=== PATIENT | male | born 1990 | race Caucasian/White ===

== ENCOUNTER 2017-11-07 10:04 | Inpatient (IN) | payer OTHER ==
[~2017-11-07 10:04] MED LIST: ROCURONIUM 50 MG INJ; VECURONIUM 10 MG VIAL
[2017-11-07] MEDS ORDERED: CIPROFLOXACIN 400MG/D5W 200 ML (12:11)
[2017-11-07] MEDS ORDERED: PROPOFOL 20 ML (12:38)
[2017-11-07] MEDS ORDERED: FENTAnyl 50 MCG/ML VIAL (12:38)
[2017-11-07] MEDS ORDERED: SUCCINYLCHOLINE CHLORIDE 100 MG/5 ML SYG IV (12:38)
[2017-11-07] MEDS ORDERED: MIDAZOLAM 1 MG/ML 2 ML INJ (12:38)
[2017-11-07] MEDS ORDERED: LIDOCAINE 2% (SDV) 5 ML INJ (12:38)
[2017-11-07] MEDS ORDERED: LABETALOL HCL 20MG INJ (13:04)
[2017-11-07] MEDS ORDERED: DEXAMETHASONE 4 MG/ML 1 ML INJ (13:23)
[2017-11-07] MEDS ORDERED: ONDANSETRON 4 MG INJ (13:23)
[2017-11-07] MEDS ORDERED: HYDROmorphONE 2 MG/ML SYG (13:33)
[2017-11-07] MEDS ORDERED: SUGAMMADEX SODIUM 200 MG/2 ML VIAL IV (14:18)
[2017-11-07] MEDS ORDERED: FUROSEMIDE 40 MG INJ (15:17)
[2017-11-07] MEDS ORDERED: hydrALAzine 20 MG INJ IV (15:30)
[2017-11-07] MEDS ORDERED: HYDROmorphONE 1 MG/ML SYG IV (15:30)
[2017-11-07] MEDS ORDERED: LABETALOL HCL 20MG INJ IV (15:30)
[2017-11-07] MEDS ORDERED: ONDANSETRON 4 MG INJ IV (15:30)
[2017-11-07] MEDS ORDERED: HYDROmorphONE 0.5 MG/0.5 ML SYG IV ×2 (15:30)
[2017-11-07] MEDS ORDERED: ATROPINE 1 MG/10 ML SYRINGE IV (15:30)
[2017-11-07] MEDS ORDERED: HYDROCODONE/APAP (5/325) TAB PO (15:30)
[2017-11-07] MEDS ORDERED: ALBUTEROL 0.083% (NEB) 2.5 MG/3 ML AMP HHN (15:30)
[2017-11-07] MEDS ORDERED: PROPOFOL 100 ML (15:33)
[2017-11-07] MEDS ORDERED: FENTAnyl (DRIP) 1000 mcg/100mL 100 ML IV (15:57)
[2017-11-07] MEDS: METHYLPREDNISOLONE 125 MG INJ IV ×2 (16:00→22:24)
[2017-11-07] MEDS: FUROSEMIDE 40 MG INJ IV ×2 (16:00→16:02)
[2017-11-07] MEDS: PROPOFOL 100 ML IV ×3 (16:01→23:02)
[2017-11-07] MEDS: morphine 2 MG INJ IV ×2 (16:24→18:06)
[2017-11-07] MEDS ORDERED: morphine 2 MG INJ IV (16:30)
[2017-11-07] MEDS: FENTAnyl (DRIP) 1000 mcg/100mL 100 ML IV (16:33)
[2017-11-07 17:23] LABS: ADD MAN DIFF? NO
[2017-11-07 17:27] LABS: BASOPHIL # 0.1 10^3/ul (0.0-0.1); BASOPHILS % 0.5 % (0.0-2.0); EOSINOPHILS % 0.1 % (0.0-7.0); HEMATOCRIT 51.8 % (42.0-52.0); HEMOGLOBIN 17.5 g/dl (14.0-18.0); LYMPHOCYTES # 1.6 10^3/ul (0.8-2.9); LYMPHOCYTES % 9.6 % (15.0-51.0); MEAN CORPUSCULAR HEMOGLOBIN 30.1 pg (29.0-33.0); MEAN CORPUSCULAR HGB CONC 33.8 g/dl (32.0-37.0); MEAN PLATELET VOLUME 10.8 fl (7.4-10.4); MONOCYTE # 0.8 10^3/ul (0.3-0.9); MONOCYTES % 4.8 % (0.0-11.0); NEUTROPHIL # 14.4 10^3/ul (1.6-7.5); NEUTROPHILS % 84.4 % (39.0-77.0); PLATELET COUNT 468 10^3/UL (140-415); RED BLOOD COUNT 5.82 10^6/ul (4.70-6.10); RED CELL DISTRIBUTION WIDTH 12.9 % (11.5-14.5)
[2017-11-07 17:28] LABS: AADO2 Arterial 604.6 mmHg (7.0-24.0); Allen Test ACCEPTAB; Arterial Base Excess -10.8 mmol/L (-3.0-3); Arterial Blood Gas Oxygen Sat 92.6 mmHG (95.0-98.0); Arterial COHb 0.2 % (0.0-3.0); Arterial HCO3 15.3 mmol/L (22.0-26.0); Arterial MetHb 0.4 % (0.0-1.5); Arterial Total Hemglobin 18.9 g/dl (12.0-18.0); Arterial pCO2 35.4 mmhg (35-45); MODE VENT - AC; Site Left Radial
[2017-11-07 17:52] LABS: ALANINE AMINOTRANSFERASE 99 IU/L (13-69); ALBUMIN 4.7 g/dl (3.3-4.9); ALKALINE PHOSPHATASE 139 IU/L (42-121); ANION GAP 24 (8-16); ASPARTATE AMINO TRANSFERASE 84 IU/L (15-46); BILIRUBIN,INDIRECT 0.2 mg/dl (0-1.1); BILIRUBIN,TOTAL 0.2 mg/dl (0.2-1.3); BLOOD UREA NITROGEN 14 mg/dl (7-20); CALCIUM 7.6 mg/dl (8.4-10.2); CARBON DIOXIDE 18 mmol/L (21-31); CHLORIDE 101 mmol/L (97-110); GLUCOSE 263 mg/dl (70-220); LIPASE 134 U/L (23-300); PHOSPHORUS 8.6 mg/dl (2.5-4.9); SODIUM 137 mmol/L (135-144); TOTAL PROTEIN 8.8 g/dl (6.1-8.1)
[2017-11-07 18:10] LABS: POTASSIUM 6.4 mmol/L (3.5-5.1)
[2017-11-07] MEDS: CIPROFLOXACIN 400MG/D5W 200 ML IVPB (20:12)
[2017-11-07] MEDS: INSULIN REGULAR, HUMAN 100 UNIT/1 ML 3ML VIAL IV (21:21)
[2017-11-08 00:13] LABS: POTASSIUM 5.4 mmol/L (3.5-5.1)
[2017-11-08] MEDS: morphine 2 MG INJ IV ×2 (02:04→14:09)
[2017-11-08] MEDS: ONDANSETRON 4 MG INJ IV (02:08)
[2017-11-08] MEDS: PROPOFOL 100 ML IV ×7 (02:33→23:22)
[2017-11-08] MEDS: NA POLYST SULFON 15 GM/60 ML BTL PO (03:54)
[2017-11-08 05:51] LABS: AADO2 Arterial 319.7 mmHg (7.0-24.0); Allen Test ACCEPTAB; Arterial Base Excess -6.6 mmol/L (-3.0-3); Arterial Blood Gas Oxygen Sat 93.7 mmHG (95.0-98.0); Arterial COHb 0.3 % (0.0-3.0); Arterial HCO3 18.3 mmol/L (22.0-26.0); Arterial MetHb 0.4 % (0.0-1.5); Arterial Total Hemglobin 17.5 g/dl (12.0-18.0); Arterial pCO2 35.4 mmhg (35-45); Blood Gas Mean Airway Pressure 12; MODE VENT - AC; Site Right Radial
[2017-11-08 05:53] LABS: ABNORMAL IP MESSAGE 1; HEMATOCRIT 45.6 % (42.0-52.0); MEAN CORPUSCULAR HEMOGLOBIN 30.7 pg (29.0-33.0); MEAN CORPUSCULAR HGB CONC 35.1 g/dl (32.0-37.0); MEAN CORPUSCULAR VOLUME 87.5 fl (82.0-101.0); PLATELET COUNT 369 10^3/UL (140-415); POSITIVE DIFF @See below; RED BLOOD COUNT 5.21 10^6/ul (4.70-6.10)
[2017-11-08 05:53] LABS: WHITE BLOOD COUNT 24.6 10^3/ul (4.8-10.8)
[2017-11-08] MEDS: METHYLPREDNISOLONE 125 MG INJ IV ×3 (06:10→22:40)
[2017-11-08] MEDS: FUROSEMIDE 40 MG INJ IV (06:10)
[2017-11-08] MEDS: FENTAnyl (DRIP) 1000 mcg/100mL 100 ML IV ×2 (06:19→19:34)
[2017-11-08 06:39] LABS: ANION GAP 22 (8-16); BLOOD UREA NITROGEN 29 mg/dl (7-20); CALCIUM 8.6 mg/dl (8.4-10.2); CARBON DIOXIDE 20 mmol/L (21-31); CHLORIDE 104 mmol/L (97-110); CREATININE 2.94 mg/dl (0.61-1.24); GLUCOSE 213 mg/dl (70-220); MAGNESIUM 1.8 mg/dl (1.7-2.5); PHOSPHORUS 2.7 mg/dl (2.5-4.9); POTASSIUM 5.6 mmol/L (3.5-5.1); SODIUM 140 mmol/L (135-144)
[2017-11-08 07:16] LABS: ADD MAN DIFF? YES
[2017-11-08 07:52] LABS: HEMOGLOBIN A1C 6.1 % (0-5.9)
[2017-11-08] MEDS: FAMOTIDINE 20 MG INJ IV (08:14)
[2017-11-08] MEDS: CIPROFLOXACIN 400MG/D5W 200 ML IVPB ×2 (08:15→20:22)
[2017-11-08 09:00] LABS: AADO2 Arterial 309.4 mmHg (7.0-24.0); Allen Test ACCEPTAB; Arterial Base Excess -5.1 mmol/L (-3.0-3); Arterial Blood Gas Oxygen Sat 95.8 mmHG (95.0-98.0); Arterial COHb 0.3 % (0.0-3.0); Arterial Fraction of Oxyhgb 95.2 % (93.0-99.0); Arterial HCO3 18.9 mmol/L (22.0-26.0); Arterial MetHb 0.3 % (0.0-1.5); Arterial Total Hemglobin 17.3 g/dl (12.0-18.0); Arterial pCO2 33.1 mmhg (35-45); MODE VENT - AC; Site Right Radial
[2017-11-08 11:24] LABS: BAND NEUTROPHILS #M 4.1 10^3/ul (0.0-0.6); BAND NEUTROPHILS % (M) 17 % (0-4); LYMPHOCYTES #M 1.4 10^3/ul (0.8-2.9); LYMPHOCYTES % (M) 6 % (15-51); MONOCYTE #M 0.9 10^3/ul (0.3-0.9); MONOCYTES % (M) 4 % (0-11); PLATELET ESTIMATE NORMAL; PLATELET MORPHOLOGY COMMENT @See below; SEGMENTED NEUTROPHILS (M) % 73 % (39-77); SMUDGE%M 2 % (0-0)
[2017-11-08] MEDS ORDERED: LIDOCAINE 1% (MDV) 20 ML INJ (13:25)
[2017-11-08] MEDS: SOD CHLORIDE 0.9% 1,000 ML IV ×2 (15:57→20:22)
[2017-11-09] MEDS: PROPOFOL 100 ML IV ×9 (01:26→23:12)
[2017-11-09] MEDS: SOD CHLORIDE 0.9% 1,000 ML IV ×6 (03:32→21:19)
[2017-11-09] MEDS: METHYLPREDNISOLONE 125 MG INJ IV ×3 (05:41→22:32)
[2017-11-09] MEDS: FENTAnyl (DRIP) 1000 mcg/100mL 100 ML IV ×2 (05:57→15:28)
[2017-11-09] MEDS ORDERED: FUROSEMIDE 40 MG INJ IV (06:00)
[2017-11-09 08:50] LABS: AADO2 Arterial 207.9 mmHg (7.0-24.0); Allen Test ACCEPTAB; Arterial Base Excess -9.5 mmol/L (-3.0-3); Arterial Blood Gas Oxygen Sat 97.7 mmHG (95.0-98.0); Arterial COHb 0.3 % (0.0-3.0); Arterial Fraction of Oxyhgb 97.1 % (93.0-99.0); Arterial MetHb 0.3 % (0.0-1.5); Arterial Total Hemglobin 12.5 g/dl (12.0-18.0); Arterial pCO2 28.7 mmhg (35-45); MODE VENT - AC; Site Right Radial
[2017-11-09] MEDS: CIPROFLOXACIN 400MG/D5W 200 ML IVPB (09:16)
[2017-11-09] MEDS: FAMOTIDINE 20 MG INJ IV (09:16)
[2017-11-09] MEDS: FUROSEMIDE 40 MG INJ IV ×2 (09:17→14:54)
[2017-11-09 09:27] LABS: ADD MAN DIFF? NO
[2017-11-09 09:29] LABS: WHITE BLOOD COUNT 17.3 10^3/ul (4.8-10.8)
[2017-11-09 09:29] LABS: BASOPHILS % 0.2 % (0.0-2.0); HEMATOCRIT 33.9 % (42.0-52.0); HEMOGLOBIN 11.3 g/dl (14.0-18.0); LYMPHOCYTES # 1.2 10^3/ul (0.8-2.9); LYMPHOCYTES % 6.8 % (15.0-51.0); MEAN CORPUSCULAR HEMOGLOBIN 29.9 pg (29.0-33.0); MEAN CORPUSCULAR HGB CONC 33.3 g/dl (32.0-37.0); MEAN CORPUSCULAR VOLUME 89.7 fl (82.0-101.0); MEAN PLATELET VOLUME 11.1 fl (7.4-10.4); MONOCYTE # 1.1 10^3/ul (0.3-0.9); MONOCYTES % 6.4 % (0.0-11.0); NEUTROPHIL # 14.9 10^3/ul (1.6-7.5); NEUTROPHILS % 85.8 % (39.0-77.0); PLATELET COUNT 255 10^3/UL (140-415); RED BLOOD COUNT 3.78 10^6/ul (4.70-6.10); RED CELL DISTRIBUTION WIDTH 12.7 % (11.5-14.5)
[2017-11-09 09:59] LABS: ALANINE AMINOTRANSFERASE 83 IU/L (13-69); ALBUMIN 3.1 g/dl (3.3-4.9); ALBUMIN/GLOBULIN RATIO 1.06; ALKALINE PHOSPHATASE 70 IU/L (42-121); ANION GAP 19 (8-16); ASPARTATE AMINO TRANSFERASE 194 IU/L (15-46); BLOOD UREA NITROGEN 60 mg/dl (7-20); CALCIUM 7.8 mg/dl (8.4-10.2); CARBON DIOXIDE 15 mmol/L (21-31); CHLORIDE 107 mmol/L (97-110); CREATININE 6.19 mg/dl (0.61-1.24); GLUCOSE 211 mg/dl (70-220); POTASSIUM 5.7 mmol/L (3.5-5.1); SODIUM 135 mmol/L (135-144)
[2017-11-09] MEDS ORDERED: LORAZEPAM 2 MG INJ IV (10:00)
[2017-11-09] MEDS: CA CHLORIDE 10% 10 ML SYRINGE IV (11:09)
[2017-11-09] MEDS: CALCIUM CHLORIDE IV (11:24)
[2017-11-09] MEDS: DEXTROSE 5% IV (11:24)
[2017-11-09] MEDS ORDERED: GLUCOSE GEL 15 GRAM TUBE PO ×2 (11:30)
[2017-11-09] MEDS ORDERED: DEXTROSE 50% 50 ML SYRINGE IV ×2 (11:30)
[2017-11-09] MEDS ORDERED: GLUCOSE GEL 15 GRAM TUBE BUCCAL (11:30)
[2017-11-09] MEDS ORDERED: GLUCAGON 1 MG INJ IM (11:30)
[2017-11-09 11:44] LABS: HEMOGLOBIN A1C 6.3 % (0-5.9)
[2017-11-09 12:11] LABS: MAGNESIUM 1.7 mg/dl (1.7-2.5)
[2017-11-09 12:34] LABS: PT RATIO 1.3
[2017-11-09] MEDS: LEVOFLOXACIN 750MG/D5W (PMX) 150 ML IVPB (12:51)
[2017-11-09] MEDS: LIDOCAINE 1% (MPF) 5 ML VIAL SC (12:51)
[2017-11-09] MEDS: INSULIN ASPART [NOVOLOG] 3 ML PEN SC ×3 (13:15→21:18)
[2017-11-09 14:30] LABS: INR 1.34; PROTIME 16.8 Sec (11.9-14.9)
[2017-11-09] MEDS: HEPARIN (10 UNITS/ML) 5ML SYG IV (14:34)
[2017-11-09 15:25] LABS: ALANINE AMINOTRANSFERASE 88 IU/L (13-69); ALBUMIN 2.9 g/dl (3.3-4.9); ALBUMIN/GLOBULIN RATIO 0.96; ALKALINE PHOSPHATASE 71 IU/L (42-121); ANION GAP 17 (8-16); ASPARTATE AMINO TRANSFERASE 184 IU/L (15-46); BLOOD UREA NITROGEN 65 mg/dl (7-20); CALCIUM 8.4 mg/dl (8.4-10.2); CARBON DIOXIDE 16 mmol/L (21-31); CHLORIDE 104 mmol/L (97-110); CREATININE 6.73 mg/dl (0.61-1.24); GLUCOSE 232 mg/dl (70-220); POTASSIUM 5.1 mmol/L (3.5-5.1); SODIUM 132 mmol/L (135-144); TOTAL PROTEIN 5.9 g/dl (6.1-8.1)
[2017-11-09 17:44] LABS: ADD UMIC YES; UR ASCORBIC ACID NEGATIVE (NEGATIVE); UR BACTERIA FEW /HPF (NONE SEEN); UR BILIRUBIN (Dip) NEGATIVE (NEGATIVE); UR BLOOD (Dip) 3+ mg/dL (NEGATIVE); UR CLARITY CLOUDY (CLEAR); UR COLOR RED (YELLOW); UR GLUCOSE (Dip) 2+ mg/dL (NEGATIVE); UR KETONES (Dip) NEGATIVE (NEGATIVE); UR LEUKOCYTE ESTERASE (Dip) TRACE Leu/ul (NEGATIVE); UR MUCUS FEW /HPF (NONE SEEN); UR NITRITE (Dip) NEGATIVE (NEGATIVE); UR RBC > 182 /HPF (0-5); UR SPECIFIC GRAVITY (Dip) 1.011 (1.003-1.030); UR SQUAMOUS EPITHELIAL CELL FEW /HPF (FEW); UR TOTAL PROTEIN (Dip) 2+ mg/dl (NEGATIVE); UR UROBILINOGEN (Dip) NEGATIVE (NEGATIVE); UR WBC 167 /HPF (0-5)
[2017-11-09 18:11] LABS: SODIUM,URINE RANDOM 108 mmol/L (30-90)
[2017-11-09 18:11] LABS: CREATININE,URINE RANDOM 44.87 mg/dl (20-370)
[2017-11-10] MEDS: INSULIN ASPART [NOVOLOG] 3 ML PEN SC ×6 (01:28→21:01)
[2017-11-10] MEDS: FENTAnyl (DRIP) 1000 mcg/100mL 100 ML IV ×3 (01:36→21:39)
[2017-11-10] MEDS: PROPOFOL 100 ML IV ×9 (01:57→23:06)
[2017-11-10] MEDS: ACCU-CHEK XX (02:00)
[2017-11-10 03:10] LABS: ADD MAN DIFF? NO
[2017-11-10 03:11] LABS: BASOPHILS % 0.1 % (0.0-2.0); HEMATOCRIT 32.4 % (42.0-52.0); HEMOGLOBIN 11.3 g/dl (14.0-18.0); LYMPHOCYTES % 6.2 % (15.0-51.0); MEAN CORPUSCULAR HGB CONC 34.9 g/dl (32.0-37.0); MEAN CORPUSCULAR VOLUME 88.8 fl (82.0-101.0); MEAN PLATELET VOLUME 11.2 fl (7.4-10.4); MONOCYTE # 0.9 10^3/ul (0.3-0.9); MONOCYTES % 5.9 % (0.0-11.0); NEUTROPHIL # 13.9 10^3/ul (1.6-7.5); NEUTROPHILS % 86.5 % (39.0-77.0); PLATELET COUNT 257 10^3/UL (140-415); RED BLOOD COUNT 3.65 10^6/ul (4.70-6.10); RED CELL DISTRIBUTION WIDTH 12.6 % (11.5-14.5)
[2017-11-10 03:38] LABS: ALANINE AMINOTRANSFERASE 83 IU/L (13-69); ALBUMIN 3.3 g/dl (3.3-4.9); ALBUMIN/GLOBULIN RATIO 1.13; ALKALINE PHOSPHATASE 73 IU/L (42-121); ANION GAP 21 (8-16); ASPARTATE AMINO TRANSFERASE 157 IU/L (15-46); BLOOD UREA NITROGEN 79 mg/dl (7-20); CARBON DIOXIDE 14 mmol/L (21-31); CHLORIDE 106 mmol/L (97-110); CHOL/HDL RATIO 5.9 RATIO; CHOLESTEROL 173 mg/dl (100-200); CREATININE 8.41 mg/dl (0.61-1.24); GLUCOSE 227 mg/dl (70-220); HDL CHOLESTEROL 29 mg/dl (30-63); LDL CHOLESTEROL,CALCULATED 87 mg/dl; SODIUM 135 mmol/L (135-144); TOTAL PROTEIN 6.2 g/dl (6.1-8.1); TRIGLYCERIDES 284 mg/dl (0-149)
[2017-11-10 04:19] LABS: POTASSIUM 6.3 mmol/L (3.5-5.1)
[2017-11-10] MEDS: SOD CHLORIDE 0.9% 1,000 ML IV ×2 (05:00→08:00)
[2017-11-10] MEDS ORDERED: DEXTROSE 50% 50 ML SYRINGE IV (05:06)
[2017-11-10] MEDS: INSULIN ASPART [NOVOLOG] 3 ML PEN IV (05:06)
[2017-11-10 05:19] LABS: AADO2 Arterial 316.7 mmHg (7.0-24.0); Allen Test ACCEPTAB; Arterial Base Excess -11.8 mmol/L (-3.0-3); Arterial Blood Gas Oxygen Sat 95.2 mmHG (95.0-98.0); Arterial COHb 0.3 % (0.0-3.0); Arterial Fraction of Oxyhgb 94.6 % (93.0-99.0); Arterial HCO3 13.5 mmol/L (22.0-26.0); Arterial MetHb 0.3 % (0.0-1.5); Arterial Total Hemglobin 12.5 g/dl (12.0-18.0); Arterial pCO2 29.1 mmhg (35-45); MODE VENT - AC; Site Left Radial
[2017-11-10] MEDS: NA POLYST SULFON 15 GM/60 ML BTL PO (05:29)
[2017-11-10] MEDS ORDERED: FUROSEMIDE 40 MG INJ IV (05:30)
[2017-11-10] MEDS ORDERED: METOLAZONE 5 MG TAB PO (05:30)
[2017-11-10] MEDS: METHYLPREDNISOLONE 125 MG INJ IV ×3 (05:47→22:09)
[2017-11-10] MEDS: DEXTROSE 50% 50 ML SYRINGE IV (06:54)
[2017-11-10] MEDS: INSULIN REGULAR, HUMAN 100 UNIT/1 ML 3ML VIAL IV (06:59)
[2017-11-10] MEDS: METOLAZONE 5 MG TAB PO (07:34)
[2017-11-10] MEDS: FUROSEMIDE 40 MG INJ IV (08:30)
[2017-11-10] MEDS: FAMOTIDINE 20 MG INJ IV (09:02)
[2017-11-10 09:25] LABS: ALANINE AMINOTRANSFERASE 80 IU/L (13-69); ALBUMIN 3.2 g/dl (3.3-4.9); ALKALINE PHOSPHATASE 71 IU/L (42-121); ANION GAP 22 (8-16); ASPARTATE AMINO TRANSFERASE 142 IU/L (15-46); BLOOD UREA NITROGEN 87 mg/dl (7-20); CALCIUM 7.9 mg/dl (8.4-10.2); CARBON DIOXIDE 14 mmol/L (21-31); CHLORIDE 106 mmol/L (97-110); CREATININE 8.82 mg/dl (0.61-1.24); GLUCOSE 209 mg/dl (70-220); POTASSIUM 5.9 mmol/L (3.5-5.1); SODIUM 136 mmol/L (135-144); TOTAL PROTEIN 6.4 g/dl (6.1-8.1)
[2017-11-10] MEDS: INSULIN GLARGINE [LANtus] 3 ML PEN SC (10:57)
[2017-11-10] MEDS: morphine 2 MG INJ IV (19:54)
[2017-11-10] MEDS: LORAZEPAM 2 MG INJ IV (22:09)
[2017-11-11] MEDS: PROPOFOL 100 ML IV ×5 (01:40→11:45)
[2017-11-11] MEDS: INSULIN ASPART [NOVOLOG] 3 ML PEN SC ×6 (01:47→20:48)
[2017-11-11] MEDS: ACCU-CHEK XX (02:00)
[2017-11-11] MEDS: SOD CHLORIDE 0.9% 1,000 ML IV (02:03)
[2017-11-11] MEDS: morphine 2 MG INJ IV (04:47)
[2017-11-11 05:19] LABS: ADD MAN DIFF? NO
[2017-11-11 05:25] LABS: BASOPHILS % 0.1 % (0.0-2.0); HEMOGLOBIN 11.3 g/dl (14.0-18.0); LYMPHOCYTES # 0.9 10^3/ul (0.8-2.9); LYMPHOCYTES % 6.2 % (15.0-51.0); MEAN CORPUSCULAR HEMOGLOBIN 30.6 pg (29.0-33.0); MEAN CORPUSCULAR HGB CONC 35.3 g/dl (32.0-37.0); MEAN CORPUSCULAR VOLUME 86.7 fl (82.0-101.0); MEAN PLATELET VOLUME 11.6 fl (7.4-10.4); MONOCYTE # 1.1 10^3/ul (0.3-0.9); NEUTROPHIL # 11.7 10^3/ul (1.6-7.5); NEUTROPHILS % 84.6 % (39.0-77.0); NUCLEATED RED BLOOD CELLS% 0.1 /100WBC (0.0-0.0); PLATELET COUNT 265 10^3/UL (140-415); POSITIVE DIFF @See below; RED BLOOD COUNT 3.69 10^6/ul (4.70-6.10); RED CELL DISTRIBUTION WIDTH 12.4 % (11.5-14.5)
[2017-11-11 05:25] LABS: WHITE BLOOD COUNT 13.8 10^3/ul (4.8-10.8)
[2017-11-11] MEDS: LORAZEPAM 2 MG INJ IV ×3 (05:37→10:18)
[2017-11-11] MEDS: METHYLPREDNISOLONE 125 MG INJ IV ×2 (05:37→17:10)
[2017-11-11] MEDS: FENTAnyl (DRIP) 1000 mcg/100mL 100 ML IV ×2 (05:49→11:16)
[2017-11-11 06:07] LABS: MAGNESIUM 1.6 mg/dl (1.7-2.5)
[2017-11-11 06:07] LABS: PHOSPHORUS 8.6 mg/dl (2.5-4.9)
[2017-11-11 06:14] LABS: ALANINE AMINOTRANSFERASE 72 IU/L (13-69); ALBUMIN 3.3 g/dl (3.3-4.9); ALBUMIN/GLOBULIN RATIO 0.94; ALKALINE PHOSPHATASE 73 IU/L (42-121); ANION GAP 28 (8-16); ASPARTATE AMINO TRANSFERASE 91 IU/L (15-46); BLOOD UREA NITROGEN 96 mg/dl (7-20); CALCIUM 7.1 mg/dl (8.4-10.2); CARBON DIOXIDE 17 mmol/L (21-31); CHLORIDE 99 mmol/L (97-110); CREATININE 9.64 mg/dl (0.61-1.24); GLUCOSE 189 mg/dl (70-220); POTASSIUM 4.7 mmol/L (3.5-5.1); SODIUM 139 mmol/L (135-144); TOTAL PROTEIN 6.8 g/dl (6.1-8.1)
[2017-11-11] MEDS: INSULIN GLARGINE [LANtus] 3 ML PEN SC (07:53)
[2017-11-11] MEDS: MIDAZOLAM (DRIP) 50 mg/50 mL 50 ML IV ×2 (08:04→11:47)
[2017-11-11] MEDS: FAMOTIDINE 20 MG INJ IV (08:14)
[2017-11-11] MEDS: ACETAMINOPHEN 650MG/20.3ML CUP GTB (08:36)
[2017-11-11] MEDS: LEVOFLOXACIN 750MG/D5W (PMX) 150 ML IVPB (08:58)
[2017-11-11] MEDS: MAGNESIUM SULFATE 2 GM/50 ML 50 ML IVPB (09:12)
[2017-11-11 10:00] LABS: AADO2 Arterial 454.6 mmHg (7.0-24.0); Allen Test ACCEPTAB; Arterial Blood Gas Oxygen Sat 95.6 mmHG (95.0-98.0); Arterial COHb 0.3 % (0.0-3.0); Arterial Fraction of Oxyhgb 94.9 % (93.0-99.0); Arterial MetHb 0.4 % (0.0-1.5); Arterial Total Hemglobin 12.4 g/dl (12.0-18.0); Arterial pCO2 30.5 mmhg (35-45); MODE VENT - AC; Site Right Radial
[2017-11-11] MEDS: AZTREONAM 0.5 GM in SOD CHLORIDE 0.9% 50 ML IV ×2 (11:30→21:00)
[2017-11-11] MEDS: VECURONIUM 100 MG in DEXTROSE 5% 100 ML IV (13:01)
[2017-11-11] MEDS: ALBUMIN HUMAN 25% 100 ML IV (13:30)
[2017-11-11 15:06] LABS: AADO2 Arterial 596.3 mmHg (7.0-24.0); Allen Test ACCEPTAB; Arterial Blood Gas Oxygen Sat 86.2 mmHG (95.0-98.0); Arterial COHb 0.3 % (0.0-3.0); Arterial Fraction of Oxyhgb 85.5 % (93.0-99.0); Arterial HCO3 19.4 mmol/L (22.0-26.0); Arterial MetHb 0.5 % (0.0-1.5); Arterial Total Hemglobin 14.7 g/dl (12.0-18.0); Arterial pCO2 57.2 mmhg (35-45); MODE VENT - PC; Site Right Radial
[2017-11-11] MEDS ORDERED: NA BICARBONATE 8.4% 50 ML SYG (15:33)
[2017-11-11] MEDS: NA BICARBONATE 8.4% 50 ML SYG IV ×2 (15:41→21:43)
[2017-11-11 15:56] LABS: CREATININE, RANDOM URINE 39 mg/dL (20-370); MICROALBUMIN 77.4 mg/dL; MICROALBUMIN/CREATININE RATIO 1985 (<30)
[2017-11-11] MEDS ORDERED: HEPARIN 1000 UNITS/ML 10 ML INJ IV (16:00)
[2017-11-11] MEDS ORDERED: SOD CHLORIDE 0.45% 1,000 ML IV (16:00)
[2017-11-11 16:17] LABS: WHITE BLOOD COUNT 3.1 10^3/ul (4.8-10.8)
[2017-11-11 16:17] LABS: ABNORMAL IP MESSAGE 1; HEMATOCRIT 37.2 % (42.0-52.0); HEMOGLOBIN 13.1 g/dl (14.0-18.0); MEAN CORPUSCULAR HEMOGLOBIN 30.6 pg (29.0-33.0); MEAN CORPUSCULAR HGB CONC 35.2 g/dl (32.0-37.0); MEAN CORPUSCULAR VOLUME 86.9 fl (82.0-101.0); MEAN PLATELET VOLUME 10.6 fl (7.4-10.4); NUCLEATED RED BLOOD CELLS% 0.7 /100WBC (0.0-0.0); PLATELET COUNT 205 10^3/UL (140-415); POSITIVE DIFF @See below; RED BLOOD COUNT 4.28 10^6/ul (4.70-6.10); RED CELL DISTRIBUTION WIDTH 12.5 % (11.5-14.5)
[2017-11-11] MEDS: HEPARIN 1000 UNITS/ML 10 ML INJ IV (16:22)
[2017-11-11 16:27] LABS: ADD MAN DIFF? YES
[2017-11-11 16:38] LABS: INR 1.29; PROTIME 16.3 Sec (11.9-14.9); PT RATIO 1.3
[2017-11-11 16:39] LABS: PARTIAL THROMBOPLASTIN TIME 26.4 Sec (25.0-35.0)
[2017-11-11] MEDS: HEPARIN 25000 UNITS/250 ML 250 ML IV (17:07)
[2017-11-11] MEDS: METOPROLOL 5 MG INJ IV (17:10)
[2017-11-11] MEDS: CLINDAMYCIN 600 MG/D5W (PMX) 50 ML IVPB (17:23)
[2017-11-11 17:29] LABS: BAND NEUTROPHILS #M 0.6 10^3/ul (0.0-0.6); BAND NEUTROPHILS % (M) 21 % (0-4); EOSINOPHILS % (M) 1 % (0-7); LYMPHOCYTES #M 0.8 10^3/ul (0.8-2.9); LYMPHOCYTES % (M) 29 % (15-51); MONOCYTE #M 0.1 10^3/ul (0.3-0.9); MONOCYTES % (M) 5 % (0-11); PLATELET ESTIMATE NORMAL; SEG NEUT #M 1.4 10^3/ul (1.7-7.5); SEGMENTED NEUTROPHILS (M) % 44 % (39-77); SMUDGE%M 6 % (0-0)
[2017-11-11] MEDS: CALCIUM GLUCONATE 10% 2 GM in DEXTROSE 5% 100 ML IVPB (17:48)
[2017-11-11] MEDS: SODIUM BICARBONATE (IV ADD) 100 MEQ in SOD CHLORIDE 0.45% 900 ML IV ×2 (18:50→20:51)
[2017-11-11] MEDS ORDERED: NORepinephrine 8MG/250 ML (PMX 250 ML (19:52)
[2017-11-11] MEDS ORDERED: DOPamine-D5W 1.6 MG/ML 0 ML (19:54)
[2017-11-11 20:47] LABS: WHITE BLOOD COUNT 6.2 10^3/ul (4.8-10.8)
[2017-11-11 20:47] LABS: ABNORMAL IP MESSAGE 1; HEMATOCRIT 38.5 % (42.0-52.0); HEMOGLOBIN 12.7 g/dl (14.0-18.0); MEAN CORPUSCULAR HEMOGLOBIN 30.2 pg (29.0-33.0); MEAN CORPUSCULAR VOLUME 91.4 fl (82.0-101.0); MEAN PLATELET VOLUME 11.4 fl (7.4-10.4); NUCLEATED RED BLOOD CELLS% 1.3 /100WBC (0.0-0.0); PLATELET COUNT 300 10^3/UL (140-415); POSITIVE DIFF @See below; RED BLOOD COUNT 4.21 10^6/ul (4.70-6.10); RED CELL DISTRIBUTION WIDTH 12.7 % (11.5-14.5)
[2017-11-11 20:51] LABS: ADD MAN DIFF? YES
[2017-11-11] MEDS ORDERED: PHENYLephrine 20MG IN 250 ML 250 ML (20:58)
[2017-11-11] MEDS: NORepinephrine 8MG/250 ML (PMX 250 ML IV (21:01)
[2017-11-11 21:07] LABS: ANION GAP 37 (8-16); BLOOD UREA NITROGEN 94 mg/dl (7-20); CALCIUM 7.2 mg/dl (8.4-10.2); CARBON DIOXIDE 15 mmol/L (21-31); CHLORIDE 93 mmol/L (97-110); GLUCOSE 142 mg/dl (70-220); MAGNESIUM 2.5 mg/dl (1.7-2.5); POTASSIUM 4.6 mmol/L (3.5-5.1); SODIUM 140 mmol/L (135-144)
[2017-11-11 21:14] LABS: BAND NEUTROPHILS #M 0.3 10^3/ul (0.0-0.6); BAND NEUTROPHILS % (M) 6 % (0-4); ERYTHROBLAST% (NRBC) (M) 1 % (0-0); GIANT THROMBO% (M) 1 % (0-0); INR 1.57; LYMPHOCYTES #M 4.5 10^3/ul (0.8-2.9); LYMPHOCYTES % (M) 74 % (15-51); METAMYELOCYTES %M 1 % (0-0); MONOCYTE #M 0.5 10^3/ul (0.3-0.9); MONOCYTES % (M) 9 % (0-11); MYELOCYTES #M 0.1 10^3/ul (0.0-0.0); MYELOCYTES % (M) 3 % (0-0); PLATELET ESTIMATE NORMAL; PROTIME 19.1 Sec (11.9-14.9); PT RATIO 1.5; REACTIVE LYMPHOCYTES% (M) 1 % (0-0); SEG NEUT #M 0.4 10^3/ul (1.7-7.5); SEGMENTED NEUTROPHILS (M) % 6 % (39-77); SMUDGE%M 9 % (0-0)
[2017-11-11] MEDS ORDERED: DOPamine-D5W 1.6 MG/ML 250 ML (21:17)
[2017-11-11 21:20] LABS: LACTIC ACID 10.8 mmol/L (0.5-2.0)
[2017-11-11] MEDS: PHENYLephrine 20MG IN 250 ML 250 ML IV (21:22)
[2017-11-11 21:23] LABS: AADO2 Arterial 617.5 mmHg (7.0-24.0); Allen Test ACCEPTAB; Arterial Base Excess -19.3 mmol/L (-3.0-3); Arterial Blood Gas Oxygen Sat 60.2 mmHG (95.0-98.0); Arterial COHb 0.4 % (0.0-3.0); Arterial Fraction of Oxyhgb 59.8 % (93.0-99.0); Arterial HCO3 12.6 mmol/L (22.0-26.0); Arterial MetHb 0.2 % (0.0-1.5); Arterial Total Hemglobin 14.2 g/dl (12.0-18.0); Arterial pCO2 55.1 mmhg (35-45); CREATININE 10.41 mg/dl (0.61-1.24); MODE VENT - PC; PHOSPHORUS 14.5 mg/dl (2.5-4.9); Site Right Radial
[2017-11-11] MEDS: DOPamine-D5W 1.6 MG/ML 250 ML IV (21:43)
[2017-11-11] MEDS: PHENYLephrine 80 MG in DEXTROSE 5% 242 ML IV (22:20)
[2017-11-11 23:20] LABS: PARTIAL THROMBOPLASTIN TIME 52.4 Sec (25.0-35.0)
[2017-11-11 23:51] LABS: AADO2 Arterial 625.2 mmHg (7.0-24.0); Allen Test ACCEPTAB; Arterial Base Excess -9.4 mmol/L (-3.0-3); Arterial Blood Gas Oxygen Sat 48.9 mmHG (95.0-98.0); Arterial COHb 0.3 % (0.0-3.0); Arterial Fraction of Oxyhgb 48.7 % (93.0-99.0); Arterial MetHb 0.2 % (0.0-1.5); Arterial Total Hemglobin 14.2 g/dl (12.0-18.0); Arterial pCO2 58.1 mmhg (35-45); MODE VENT - PC; Site Left Radial
[2017-11-12] MEDS: NORepinephrine 32 MG in DEXTROSE 5% 218 ML IV ×2 (00:07→02:58)
[2017-11-12] MEDS: HEPARIN 25000 UNITS/250 ML 250 ML IV (00:21)
[2017-11-12] MEDS: CLINDAMYCIN 600 MG/D5W (PMX) 50 ML IVPB ×2 (00:21→05:48)
[2017-11-12] MEDS: METHYLPREDNISOLONE 125 MG INJ IV ×2 (00:24→05:48)
[2017-11-12] MEDS: INSULIN ASPART [NOVOLOG] 3 ML PEN SC ×3 (00:31→08:33)
[2017-11-12] MEDS: ACCU-CHEK XX (02:00)
[2017-11-12] MEDS: DOPamine 1,600 MG in DEXTROSE 5% 210 ML IV (02:25)
[2017-11-12] MEDS: VASOPRESSIN 60 UNIT in DEXTROSE 5% 57 ML IV (03:31)
[2017-11-12] MEDS: METOPROLOL 5 MG INJ IV ×2 (05:41)
[2017-11-12 06:15] LABS: ABNORMAL IP MESSAGE 1; HEMATOCRIT 35.3 % (42.0-52.0); HEMOGLOBIN 12.1 g/dl (14.0-18.0); MEAN CORPUSCULAR HEMOGLOBIN 31.1 pg (29.0-33.0); MEAN CORPUSCULAR HGB CONC 34.3 g/dl (32.0-37.0); MEAN CORPUSCULAR VOLUME 90.7 fl (82.0-101.0); MEAN PLATELET VOLUME 11.7 fl (7.4-10.4); NUCLEATED RED BLOOD CELLS% 3.5 /100WBC (0.0-0.0); PLATELET COUNT 285 10^3/UL (140-415); POSITIVE DIFF @See below; RED BLOOD COUNT 3.89 10^6/ul (4.70-6.10); RED CELL DISTRIBUTION WIDTH 13.2 % (11.5-14.5)
[2017-11-12 06:37] LABS: ANION GAP 38 (8-16); BLOOD UREA NITROGEN 98 mg/dl (7-20); CARBON DIOXIDE 16 mmol/L (21-31); CHLORIDE 91 mmol/L (97-110); GLUCOSE 150 mg/dl (70-220); MAGNESIUM 2.3 mg/dl (1.7-2.5); POTASSIUM 5.9 mmol/L (3.5-5.1); SODIUM 139 mmol/L (135-144)
[2017-11-12 06:41] LABS: LACTIC ACID 7.7 mmol/L (0.5-2.0)
[2017-11-12 06:58] LABS: ADD MAN DIFF? YES
[2017-11-12 07:16] LABS: CREATININE 10.54 mg/dl (0.61-1.24); PHOSPHORUS 16.3 mg/dl (2.5-4.9)
[2017-11-12 07:17] LABS: CALCIUM 5.5 mg/dl (8.4-10.2)
[2017-11-12 07:44] LABS: AADO2 Arterial 617.7 mmHg (7.0-24.0); Arterial Base Excess -19.5 mmol/L (-3.0-3); Arterial COHb 0.1 % (0.0-3.0); Arterial HCO3 14.6 mmol/L (22.0-26.0); Arterial MetHb 3.1 % (0.0-1.5); Arterial Total Hemglobin 11.7 g/dl (12.0-18.0); Arterial pCO2 83.7 mmhg (35-45); MODE VENT - PC; Site LB
[2017-11-12] MEDS: INSULIN GLARGINE [LANtus] 3 ML PEN SC (07:57)
[2017-11-12] MEDS: FAMOTIDINE 20 MG INJ IV (08:32)
[2017-11-12] MEDS: SODIUM BICARBONATE IV (08:32)
[2017-11-12] MEDS: SOD CHLORIDE 0.45% IV (08:32)
[2017-11-12] MEDS: AZTREONAM 0.5 GM in SOD CHLORIDE 0.9% 50 ML IV (08:32)
[2017-11-12 08:59] LABS: ANISOCYTOSIS 2+ (0-0); BAND NEUTROPHILS #M 3.9 10^3/ul (0.0-0.6); BAND NEUTROPHILS % (M) 30 % (0-4); EOSINOPHILS % (M) 1 % (0-7); ERYTHROBLAST% (NRBC) (M) 8 % (0-0); GIANT THROMBO% (M) 2 % (0-0); LYMPHOCYTES #M 4.6 10^3/ul (0.8-2.9); LYMPHOCYTES % (M) 36 % (15-51); METAMYELOCYTES #M 1.1 10^3/ul (0.0-0.0); METAMYELOCYTES %M 9 % (0-0); MICROCYTOSIS 2+ (0-0); MONOCYTE #M 2.2 10^3/ul (0.3-0.9); MONOCYTES % (M) 17 % (0-11); PLATELET ESTIMATE NORMAL; REACTIVE LYMPHOCYTES #M 0.2 10^3/ul (0.0-0.0); REACTIVE LYMPHOCYTES% (M) 2 % (0-0); SEG NEUT #M 1.2 10^3/ul (1.7-7.5); SEGMENTED NEUTROPHILS (M) % 5 % (39-77); SMUDGE%M 3 % (0-0)
[2017-11-12] MEDS ORDERED: HEPARIN 1000 UNITS/ML 10 ML INJ CATHETER (11:30)
== END 2017-11-12 11:38 | disposition expired | DRG 668 ==
LOC: SDS 10:04 → ICU 15:15 → SDS 18:31 → ICU 16:59
PROC: 0TC68ZZ Extirpation of Matter from Right Ureter, Via Natural or Artificial Opening Endoscopic (ICD-10-PCS; principal; 2017-11-07 12:30)
PROC: 0T768DZ Dilation of Right Ureter with Intraluminal Device, Via Natural or Artificial Opening Endoscopic (ICD-10-PCS; 2017-11-07 12:30)
PROC: 5A1955Z Respiratory Ventilation, Greater than 96 Consecutive Hours (ICD-10-PCS; 2017-11-07 12:41)
PROC: 0BH17EZ Insertion of Endotracheal Airway into Trachea, Via Natural or Artificial Opening (ICD-10-PCS; 2017-11-07 12:41)
PROC: 0W9930Z Drainage of Right Pleural Cavity with Drainage Device, Percutaneous Approach (ICD-10-PCS; 2017-11-07 12:41)
PROC: 0W9930Z Drainage of Right Pleural Cavity with Drainage Device, Percutaneous Approach (ICD-10-PCS; 2017-11-07 12:41)
PROC: 02HV33Z Insertion of Infusion Device into Superior Vena Cava, Percutaneous Approach (ICD-10-PCS; 2017-11-07 12:41)
PROC: 06HM33Z Insertion of Infusion Device into Right Femoral Vein, Percutaneous Approach (ICD-10-PCS; 2017-11-07 12:41)
PROC: 5A12012 Performance of Cardiac Output, Single, Manual (ICD-10-PCS; 2017-11-07 12:41)
PROC: 5A12012 Performance of Cardiac Output, Single, Manual (ICD-10-PCS; 2017-11-07 12:41)
PROC: 5A12012 Performance of Cardiac Output, Single, Manual (ICD-10-PCS; 2017-11-07 12:41)
PROC: 5A12012 Performance of Cardiac Output, Single, Manual (ICD-10-PCS; 2017-11-07 12:41)
PROC: 5A12012 Performance of Cardiac Output, Single, Manual (ICD-10-PCS; 2017-11-07 12:41)
PROC: 5A1D70Z Performance of Urinary Filtration, Intermittent, Less than 6 Hours Per Day (ICD-10-PCS; 2017-11-07 12:41)
PROC: 5A1D70Z Performance of Urinary Filtration, Intermittent, Less than 6 Hours Per Day (ICD-10-PCS; 2017-11-07 12:41)
DX: N20.1 Calculus of ureter (principal); J96.01 Acute respiratory failure with hypoxia; R65.21 Severe sepsis with septic shock; J93.0 Spontaneous tension pneumothorax; G92 Toxic encephalopathy; A41.9 Sepsis, unspecified organism; N17.0 Acute kidney failure with tubular necrosis; J18.9 Pneumonia, unspecified organism; J81.0 Acute pulmonary edema; N39.0 Urinary tract infection, site not specified; E87.4 Mixed disorder of acid-base balance; J95.89 Other postprocedural complications and disorders of respiratory system, not elsewhere classified; N13.8 Other obstructive and reflux uropathy; I46.9 Cardiac arrest, cause unspecified; G47.33 Obstructive sleep apnea (adult) (pediatric); E66.01 Morbid (severe) obesity due to excess calories; J44.9 Chronic obstructive pulmonary disease, unspecified; E78.5 Hyperlipidemia, unspecified; F20.9 Schizophrenia, unspecified; E87.5 Hyperkalemia; K76.0 Fatty (change of) liver, not elsewhere classified; D64.9 Anemia, unspecified; R73.9 Hyperglycemia, unspecified; J38.5 Laryngeal spasm; R00.1 Bradycardia, unspecified; E83.42 Hypomagnesemia; T38.0X5A Adverse effect of glucocorticoids and synthetic analogues, initial encounter; Y83.8 Other surgical procedures as the cause of abnormal reaction of the patient, or of later complication, without mention of misadventure at the time of the procedure; Z68.37 Body mass index [BMI] 37.0-37.9, adult; Z87.891 Personal history of nicotine dependence
CPT/HCPCS: 36569; 36600; 71010; 71045; 74430; 76775; 76937; 80048; 80053; 80061; 80076; 81001; 81003; 82043; 82803; 82962; 83036; 83605; 83690; 83735; 84100; 84132; 84155; 84300; 85025; 85610; 85730; 87040; 87070; 88300; 90935; 92950; 93306; 94002; 94003; 94770